=== PATIENT | male | born 1970 | race Asian ===

== ENCOUNTER 2020-07-18 06:51 | Day surgery (SDC) | payer OTHER, SELFPAY ==
[~2020-07-18] VITALS: Ht 157.5 cm; Wt 53.1 kg
[2020-07-18] MEDS ORDERED: fentaNYL citrate 0.05 MG/ML VIAL ONE (08:50)
[2020-07-18] MEDS ORDERED: diphenhydrAMINE 50 MG/ML VIAL ONE (08:50)
[2020-07-18] MEDS ORDERED: LIDOCAINE 2% 100 MG/5 ML UJET TP ONE ×2 (08:50→09:10)
[2020-07-18] MEDS ORDERED: MIDAZOLAM 5 MG/5 ML VIAL ONE (08:50)
[2020-07-18] MEDS ORDERED: MIDAZOLAM 2 MG/2 ML VIAL IVP ONE (09:10)
[2020-07-18] MEDS ORDERED: fentaNYL citrate 0.05 MG/ML VIAL IVP ONE (09:10)
== END 2020-07-18 10:00 | disposition home or self-care (01) ==
LOC: MDS 06:51 → MMU 06:51 → MDS 10:00
PROVIDERS: ATTEND Internal Medicine Gastroenterology
DX: Z12.11 Encounter for screening for malignant neoplasm of colon (principal); Z20.822 Contact with and (suspected) exposure to COVID-19
CPT/HCPCS: 45378; J2250; J3010; J7030; U0003; J1200